=== PATIENT | female | born 1970 | race Caucasian/White ===

== ENCOUNTER 2020-10-12 02:09 | Emergency (ER) | payer MEDICAID ==
[~2020-10-12] VITALS: Ht 165.1 cm; Wt 72.7 kg
[~2020-10-12 02:09] MED LIST: NOCURR
[2020-10-12 02:39] LABS: BASOPHILS % (AUTO) 0.4 % (0.0-2.0); HEMATOCRIT 45.2 % (36-46); HEMOGLOBIN 14.9 g/dL (12.0-16.0); LYMPHOCYTES # (AUTO) 3.2 K/uL (1.0-4.8); LYMPHOCYTES % (AUTO) 37.7 % (22.0-44.0); MEAN CORPUSCULAR HEMOGLOBIN 30.6 pg (26.0-34.0); MEAN CORPUSCULAR HGB CONC 32.9 G/dL (31.0-37.0); MEAN CORPUSCULAR VOLUME 93 fL (80-100); MONOCYTES # (AUTO) 0.7 K/uL (0.1-1.0); MONOCYTES % (AUTO) 8.5 % (2.0-9.0); NEUTROPHILS # (AUTO) 4.4 K/uL (1.8-7.7); NEUTROPHILS % (AUTO) 51.4 % (40.0-70.0); PLATELET COUNT (AUTO) 323 K/uL (150-450); RED BLOOD CELL COUNT(AUTO) 4.86 MIL/uL (4.00-5.20); RED CELL DISTRIBUTION WIDTH 13.1 % (11.5-14.5)
[2020-10-12 02:49] LABS: ANION GAP 7 mmol/L (8-16); CALCIUM, TOTAL 9.3 mg/dL (8.8-10.5); CARBON DIOXIDE 29 mmol/L (22-29); CHLORIDE 103 mmol/L (98-107); CREATININE 0.69 mg/dL (0.60-1.30); GLOMERULAR FILTR. RATE CALC > 60 mL/min (>60); GLUCOSE,RANDOM 120 mg/dL (70-110); POTASSIUM 3.7 mmol/L (3.5-5.1); SODIUM SERUM 139 mmol/L (136-145); UREA NITROGEN, BLOOD 16 mg/dL (7-18)
[2020-10-12 02:55] LABS: ALANINE AMINOTRANSFERASE 36 U/L (12-78); ALBUMIN 4.4 g/dL (3.4-5.0); ALKALINE PHOSPHATASE 125 U/L (46-116); ASPARTATE AMINOTRANSFERASE 20 U/L (15-37); BILIRUBIN,TOTAL 0.3 mg/dL (0.1-1.0)
[2020-10-12 03:30] VITALS: BP 123/79
== END 2020-10-12 03:45 | disposition home or self-care (01) ==
LOC: EMS 02:14
DX: R07.89 Other chest pain (principal)
CPT/HCPCS: 71045; 80053; 84484; 85025; 93005; 99285; 36415-L1; 36415-TC

== ENCOUNTER 2020-10-16 23:52 | Emergency (ER) | payer MEDICAID ==
[~2020-10-16] VITALS: Ht 162.6 cm; Wt 71.8 kg
[2020-10-17 00:12] VITALS: BP 153/80
== END 2020-10-17 01:14 | disposition left against medical advice (07) ==
LOC: EMS 23:52
DX: R51.9 Headache, unspecified (principal); Z53.21 Procedure and treatment not carried out due to patient leaving prior to being seen by health care provider

== ENCOUNTER 2025-02-12 05:35 | Emergency (ER) | payer MEDICAID, OTHER ==
[~2025-02-12] VITALS: Ht 167.6 cm; Wt 75.0 kg
[2025-02-12 05:54] VITALS: TEMP 98.4
[2025-02-12 06:28] LABS: PLATELET COUNT (AUTO) 291 K/uL (150-450); RED BLOOD CELL COUNT(AUTO) 4.56 MIL/uL (4.00-5.20); RED CELL DISTRIBUTION WIDTH 13.2 % (11.5-14.5); WHITE BLOOD COUNT (AUTO) 6.7 K/uL (4.5-11.0)
[2025-02-12 06:34] LABS: CALCIUM, TOTAL 8.8 mg/dL (8.8-10.5); CREATININE 0.67 mg/dL (0.60-1.30); GLOMERULAR FILTR. RATE CALC > 60 mL/min (>60); GLUCOSE,RANDOM 115 mg/dL (70-110); SODIUM SERUM 141 mmol/L (136-145); UREA NITROGEN, BLOOD 11 mg/dL (7-18)
[2025-02-12 07:30] VITALS: BP 127/68; PULSE 68; RESP 17; O2SAT 96
[2025-02-12] MEDS ORDERED: IBUP-1554 PO (07:50)
[2025-02-12] MEDS ORDERED: ACET-66 PO (07:50)
[2025-02-12] MEDS: POTASSIUM CHLORIDE 20 MEQ ER TABLET PO ONE (08:22)
[2025-02-12] MEDS: ACETAMINOPHEN 500 MG TABLET PO ONE (08:23)
== END 2025-02-12 08:53 | disposition home or self-care (01) ==
LOC: EMS 06:24
DX: M60.9 Myositis, unspecified (principal); E87.6 Hypokalemia; Z90.49 Acquired absence of other specified parts of digestive tract
CPT/HCPCS: 80048; 85025; 99283